=== PATIENT | female | born 1960 ===

== ENCOUNTER 2021-01-07 06:00 | Outpatient (RCR) | payer MEDICAID, SELFPAY | END 2021-01-23 23:59 | disposition home or self-care (01) | LOC: TPT 06:00 | PROVIDERS: PCP Family Medicine; Referring Provider Nurse Practitioner Family; Visit Provider Nurse Practitioner Family | DX: M47.892 Other spondylosis, cervical region (principal) | CPT/HCPCS: 97110; 97162 ==